=== PATIENT | female | born 1965 | race Caucasian/White ===

== ENCOUNTER → 2017-05-21 | Outpatient (CLI) | payer BC, OTHER ==
[~2017-05-21] MED LIST: /DULO30CA; COLA100C2; LEVA500T; NEUR800T; PERC5TAB8
--- NOTE | 2017-05-21 11:20 | REP ---
Nuclear renal scintigraphy with differential flow and function analysis: History: Atherosclerosis of the renal arteries. Decreased kidney function. Technique: 8.8 mCi technetium 99m MAG-3 is injected and posterior flow and excretory phase images are acquired. Renal cortical regions of interest are drawn and time activity curves are plotted for renal function analysis. Scintigraphic findings: Posterior flow study shows normal symmetric perfusion. Excretory phase images show no evidence of obstructive uropathy or asymmetry of function on either side. Postvoid image is unremarkable. Differential renal function analysis is slightly asymmetric with 41% of overall renal cortical counts coming from the left kidney and 59% from the right. Time to peak activity is normal bilaterally at 2.0 minutes. Time to half max activity is somewhat delayed bilaterally measured at 20 minutes on the left and 17 minutes on the right. Impression: Somewhat impaired excretory function bilaterally. No evidence of obstructive uropathy. Normal symmetric flow. Signed by Carlton Seaman MD 05/21/2017 03:56 P
== END ==
LOC: M RAD 09:25
PROVIDERS: ATTEND Internal Medicine Nephrology
DX: I70.1 Atherosclerosis of renal artery (principal)

== ENCOUNTER → 2020-12-25 | Outpatient (REF) | payer OTHER ==
[~2020-12-25] MED LIST changes: -/DULO30CA; +CYMB1CAP5
== END ==
LOC: M LAB REF 18:27
PROVIDERS: ATTEND Internal Medicine Nephrology
DX: E83.42 Hypomagnesemia (principal)

== ENCOUNTER → 2021-06-27 | Outpatient (REF) | payer OTHER | LOC: M LAB REF 17:05 | PROVIDERS: ATTEND Internal Medicine Nephrology | DX: N18.30 Chronic kidney disease, stage 3 unspecified (principal); E83.42 Hypomagnesemia ==

== ENCOUNTER → 2022-03-05 | Outpatient (REF) | LOC: M PLAIMG 10:10 | PROVIDERS: ATTEND Internal Medicine | DX: M47.816 Spondylosis without myelopathy or radiculopathy, lumbar region (principal); R52 Pain, unspecified ==